=== PATIENT | female | born 1945 | race Caucasian/White ===

== ENCOUNTER 2025-03-20 07:49 | Outpatient (CLI) | payer MEDICARE, OTHER, SELFPAY | END 2025-03-20 07:50 | disposition home or self-care (01) | PROVIDERS: PCP Family Medicine; Visit Provider Family Medicine | DX: M54.16 Radiculopathy, lumbar region (principal); M51.369 Other intervertebral disc degeneration, lumbar region without mention of lumbar back pain or lower extremity pain | CPT/HCPCS: 64483; J1100; Q9966 ==